=== PATIENT | female | born 1965 | race African-American/Black ===

== ENCOUNTER 2023-10-26 03:03 | Inpatient (IN) | payer OTHER ==
[~2023-10-26] VITALS: Ht 170.2 cm; Wt 83.0 kg
[2023-10-26] VITALS (61 sets, daily range): BP systolic 81–111; BP diastolic 57–90; PULSE 75–92; RESP 14–29; TEMP 97.4–98.6
[2023-10-26] MEDS ORDERED: ACETAMINOPHEN 650MG SUPP PR PRN (03:15)
[2023-10-26] MEDS ORDERED: PROPOFOL 10MG/ML 100ML 100 ML IV PRN (03:15)
[2023-10-26] MEDS ORDERED: ACETAMINOPHEN 650MG/20.3ML UDC NG PRN (03:15)
[2023-10-26 03:26] LABS: DIFFERENTIAL COMMENT 0; EOSINOPHILS % 0.7 % (0.0-5.0); HEMOGLOBIN. 11.1 g/dL (12.0-16.0); LYMPHOCYTES % 46.5 % (20.0-50.0); MEAN CORPUSCULAR HEMOGLOBIN 24.9 pg (28.0-32.0); MEAN CORPUSCULAR HGB CONC 30.9 g/dL (31.0-37.0); MEAN CORPUSCULAR VOLUME 80.6 fL (81.0-99.0); MEAN PLATELET VOLUME 8.8 fl (7.4-10.4); MONOCYTES % 5.6 % (2.0-8.0); NEUTROPHILS % 46.2 % (40.0-76.0); PLATELET 176 x1000/uL (130-400); RED BLOOD CELL COUNT 4.47 mill/uL (4.2-5.4); RED CELL DISTRIBUTION WIDTH 14.4 % (11.6-14.6); WHITE BLOOD COUNT 13.5 x1000/uL (4.5-11.0)
[2023-10-26 03:32] LABS: BG BASE EXCESS -15.5 mmol/L (-2.0-2.0); BG FRACTION INSPIRED OXYGEN 100; BG HCO3 ACT 16.6 mmol/L (22.0-26.0); BG PCO2 67.2 mmHg (35.0-45.0); BG PO2 478.9 mmHg (75.0-100.0); BG SAMPLE SITE RIGHT RADIAL; BG VENT MODE VENT - AC
[2023-10-26 03:35] LABS: CHLORIDE 106 mEq/L (98-107); POTASSIUM 4.5 mEq/L (3.5-5.1); SODIUM 143 mEq/L (136-145)
[2023-10-26 03:36] LABS: CARBON DIOXIDE 21 mEq/L (21-32)
[2023-10-26] MEDS: SODIUM CHLORIDE 0.9% 1,000 ML IV ONE (03:36)
[2023-10-26 03:37] LABS: CALCIUM 8.3 mg/dL (8.7-10.4)
[2023-10-26 03:39] LABS: PROTHROMBIN TIME 11.3 sec (9.6-11.0)
[2023-10-26 03:41] LABS: CREATININE 1.5 mg/dL (0.6-1.0); GLUCOSE 377 mg/dL (70-105)
[2023-10-26 03:42] LABS: TROPONIN I HIGH SENSITIVITY 19 ng/L (3.0-34); UREA NITROGEN BLOOD 18 mg/dL (9-23)
[2023-10-26 03:59] LABS: LACTIC ACID 12.7 mmol/L (0.4-2.0); PHOSPHORUS 9.5 mg/dL (2.5-4.9)
[2023-10-26 04:00] LABS: ETHANOL BLOOD < 10 mg/dL (<10)
[2023-10-26] MEDS ORDERED: FENTANYL 2500MCG/250ML PMX 250 ML IV STA (04:47)
[2023-10-26] MEDS ORDERED: MIDAZOLAM HCL 100 MG in DEXT 5% WATER 80 ML IV ONE (05:00)
[2023-10-26 06:27] LABS: BG BASE EXCESS -5.6 mmol/L (-2.0-2.0); BG FRACTION INSPIRED OXYGEN 100; BG HCO3 ACT 20.8 mmol/L (22.0-26.0); BG PCO2 43.8 mmHg (35.0-45.0); BG PH 7.295 (7.350-7.450); BG SAMPLE SITE RIGHT RADIAL; BG VENT MODE VENT - AC
[2023-10-26] MEDS: MIDAZOLAM 100MG/100ML PREMIX IV PRN (06:58)
[2023-10-26] MEDS: FENTANYL 2500MCG/250ML PMX 250 ML IV PRN (07:00)
[2023-10-26 08:40] LABS: TROPONIN I HIGH SENSITIVITY 331 ng/L (3.0-34)
[2023-10-26] MEDS ORDERED: CEFEPIME 2GM IN DEXT 5% 100ML IV SCH (09:00)
[2023-10-26] MEDS ORDERED: DOCUSATE SODIUM 100MG CAPSULE PO PRN (09:00)
[2023-10-26] MEDS ORDERED: DEXTROSE 50% WATER 50ML SYRINGE IV PRN (09:00)
[2023-10-26] MEDS ORDERED: HYDROCODONE/ACETAMINOPHEN 5/325MG TABLET PO PRN (09:00)
[2023-10-26] MEDS ORDERED: ONDANSETRON HCL 4MG/2ML INJ IV PRN (09:00)
[2023-10-26] MEDS ORDERED: EPINEPHRINE 0.1MG/ML (1:10,000) 10ML SYR ONE (09:00)
[2023-10-26] MEDS: INSULIN LISPRO 100 UNITS/ML SUBCUT SCH (09:30)
[2023-10-26 09:34] LABS: ALANINE AMINOTRANSFERASE 305 IU/L (10-49); ALBUMIN 3.7 g/dL (3.2-4.8); ASPARTATE AMINOTRANSFERASE 499 IU/L (<34); BILIRUBIN TOTAL 0.2 mg/dL (0.1-1.0); CREATINE KINASE 436 IU/L (34-145); PROTEIN TOTAL 5.5 g/dL (6.0-8.3)
[2023-10-26 09:36] LABS: T4 FREE 1.09 ng/dL (0.89-1.76); THYROID STIMULATING HORMONE 0.56 uIU/mL (0.55-4.78)
[2023-10-26 09:45] LABS: TROPONIN I HIGH SENSITIVITY 947 ng/L (3.0-34)
[2023-10-26 09:45] LABS: BILIRUBIN DIRECT < 0.1 mg/dL (<=3.0)
[2023-10-26] MEDS ORDERED: NALOXONE HCL 0.4MG/ML VIAL IV PRN (09:45)
[2023-10-26 10:08] LABS: LACTIC ACID 3.6 mmol/L (0.4-2.0)
[2023-10-26] MEDS: BLOOD SUGAR DIAGNOSTIC STRIP TEST SCH (10:12)
[2023-10-26] MEDS: PANTOPRAZOLE SODIUM 40 MG/VIAL IV SCH (10:26)
[2023-10-26 11:18] LABS: POTASSIUM 3.9 mEq/L (3.5-5.1)
[2023-10-26 11:19] LABS: CALCIUM 8.2 mg/dL (8.7-10.4)
[2023-10-26 11:24] LABS: CREATININE 1.8 mg/dL (0.6-1.0)
[2023-10-26] MEDS: ASPIRIN 81MG TABLET PO SCH (11:58)
[2023-10-26] MEDS: SODIUM CHLORIDE 0.9% 1,000 ML IV SCH (11:58)
[2023-10-26] MEDS: ENOXAPARIN 100MG/ML SYR SUBCUT SCH (11:59)
[2023-10-26 12:51] LABS: BASOPHILS % 0.2 % (0.0-2.0); DIFFERENTIAL COMMENT 0; EOSINOPHILS % 0.1 % (0.0-5.0); HEMATOCRIT. 38.7 % (36.0-48.0); HEMOGLOBIN. 12.2 g/dL (12.0-16.0); LYMPHOCYTES % 7.4 % (20.0-50.0); MEAN CORPUSCULAR HGB CONC 31.6 g/dL (31.0-37.0); MEAN CORPUSCULAR VOLUME 79.2 fL (81.0-99.0); MEAN PLATELET VOLUME 8.3 fl (7.4-10.4); MONOCYTES % 11.9 % (2.0-8.0); NEUTROPHILS % 80.4 % (40.0-76.0); PLATELET 212 x1000/uL (130-400); RED BLOOD CELL COUNT 4.89 mill/uL (4.2-5.4); RED CELL DISTRIBUTION WIDTH 14.5 % (11.6-14.6); WHITE BLOOD COUNT 13.4 x1000/uL (4.5-11.0)
[2023-10-26] MEDS: CEFEPIME 2GM/100ML 100 ML IV SCH (13:01)
[2023-10-26 13:09] LABS: CLARITY URINE TURBID (CLEAR); COLOR URINE YELLOW (YELLOW); GLUCOSE URINE 2+ (NEGATIVE); KETONES URINE NEGATIVE (NEGATIVE); LEUKOCYTE ESTERASE URINE NEGATIVE (NEGATIVE); NITRITE URINE NEGATIVE (NEGATIVE); OCCULT BLOOD URINE 3+ (NEGATIVE); PH URINE 5.5 (4.5-8.0); PROTEIN URINE 3+ (NEGATIVE); SPECIFIC GRAVITY URINE 1.014 (1.005-1.030); UROBILINOGEN URINE 0.2 E.U./dL (0.2-1.0)
[2023-10-26] MEDS ORDERED: TOPI50TA MT (13:12)
[2023-10-26] MEDS ORDERED: FURO20TA4 MT (13:12)
[2023-10-26] MEDS ORDERED: ROSU20TA2 MT (13:12)
[2023-10-26] MEDS ORDERED: LOSA25TA26 MT (13:12)
[2023-10-26] MEDS ORDERED: EMPA25TA MT (13:12)
[2023-10-26] MEDS ORDERED: BISO5TAB13 MT (13:12)
[2023-10-26] MEDS ORDERED: AMOX1TAB16 MT (13:12)
[2023-10-26 13:28] LABS: *AMPHETAMINES SCREEN URINE NEGATIVE (NEGATIVE); *BARBITURATES SCREEN URINE NEGATIVE (NEGATIVE); *BENZODIAZEPINES SCREEN URINE PRESUMPTIVE POSITIVE (NEGATIVE); *COCAINE SCREEN URINE NEGATIVE (NEGATIVE); CANNABINOID URINE SCREEN NEGATIVE (NEGATIVE); ECSTASY MDMA SCREEN URINE NEGATIVE (NEGATIVE); METHADONE URINE SCREEN NEGATIVE (NEGATIVE); OPIATES URINE SCREEN NEGATIVE (NEGATIVE); PHENCYCLIDINE URINE SCREEN NEGATIVE (NEGATIVE)
[2023-10-26 13:48] LABS: BACTERIA URINE 2+; RBC URINE 15-25 /hpf (0-2); SQUAMOUS EPITHELIAL CELL URINE 1+ /lpf (RARE/1+); WBC URINE 15-25 /hpf (0-2)
[2023-10-26] MEDS ORDERED: CEFEPIME 2GM/100ML 100 ML IV SCH (14:00)
[2023-10-26] MEDS: IOHEXOL-350 100 ML BOTTLE ONE (15:02)
[2023-10-26] MEDS: FUROSEMIDE 40MG TABLET PO SCH (15:14)
[2023-10-26] MEDS: METRONIDAZOLE 500 MG PREMIX 100 ML IV SCH (17:47)
[2023-10-26 19:06] LABS: CREATINE KINASE 637 IU/L (34-145)
[2023-10-26 20:04] LABS: TROPONIN I HIGH SENSITIVITY 426 ng/L (3.0-34)
[2023-10-26] MEDS ORDERED: ATORVASTATIN CALCIUM 40MG TABLET PO SCH (21:00)
[2023-10-26] MEDS: MIDAZOLAM 100MG/100ML PMX 100 ML IV PRN (21:01)
[2023-10-26 22:12] LABS: HEMATOCRIT 34.7 % (36.0-48.0)
[2023-10-26 22:40] LABS: HEMATOCRIT 35.8 % (36.0-48.0); HEMOGLOBIN 11.3 g/dL (12.0-16.0)
[2023-10-27] VITALS (103 sets, daily range): BP systolic 104–156; BP diastolic 60–118; PULSE 90–117; RESP 17–36; TEMP 98.2–100.4
[2023-10-27 02:31] LABS: CREATINE KINASE MB FRACTION 6.2 ng/mL (0.5-3.6)
[2023-10-27 05:46] LABS: BASOPHILS % 0.6 % (0.0-2.0); DIFFERENTIAL COMMENT 0; EOSINOPHILS % 0.1 % (0.0-5.0); HEMATOCRIT. 32.9 % (36.0-48.0); HEMOGLOBIN. 10.8 g/dL (12.0-16.0); LYMPHOCYTES % 8.7 % (20.0-50.0); MEAN CORPUSCULAR HEMOGLOBIN 24.9 pg (28.0-32.0); MEAN CORPUSCULAR HGB CONC 32.7 g/dL (31.0-37.0); MEAN CORPUSCULAR VOLUME 76.2 fL (81.0-99.0); MONOCYTES % 9.2 % (2.0-8.0); NEUTROPHILS % 81.4 % (40.0-76.0); PLATELET 183 x1000/uL (130-400); RED BLOOD CELL COUNT 4.32 mill/uL (4.2-5.4); RED CELL DISTRIBUTION WIDTH 14.1 % (11.6-14.6); WHITE BLOOD COUNT 11.1 x1000/uL (4.5-11.0)
[2023-10-27 05:57] LABS: CHLORIDE 114 mEq/L (98-107); SODIUM 144 mEq/L (136-145)
[2023-10-27 05:58] LABS: CALCIUM 8.1 mg/dL (8.7-10.4); CARBON DIOXIDE 23 mEq/L (21-32)
[2023-10-27 06:03] LABS: CREATININE 1.8 mg/dL (0.6-1.0); GLUCOSE 129 mg/dL (70-105); UREA NITROGEN BLOOD 27 mg/dL (9-23)
[2023-10-27 06:05] LABS: ALANINE AMINOTRANSFERASE 206 IU/L (10-49); ALBUMIN 3.8 g/dL (3.2-4.8); ASPARTATE AMINOTRANSFERASE 214 IU/L (<34); CREATINE KINASE 613 IU/L (34-145)
[2023-10-27 06:06] LABS: BILIRUBIN TOTAL 0.4 mg/dL (0.1-1.0); PROTEIN TOTAL 5.9 g/dL (6.0-8.3)
[2023-10-27 06:14] LABS: TROPONIN I HIGH SENSITIVITY 226 ng/L (3.0-34)
[2023-10-27 06:42] LABS: CREATINE KINASE MB FRACTION 4.1 ng/mL (0.5-3.6)
[2023-10-27] MEDS: TOPIRAMATE 25MG TABLET PO SCH (08:37)
[2023-10-27] MEDS: FENTANYL 2500MCG/250ML PMX 250 ML IV PRN (10:17)
[2023-10-27] MEDS: ACETAMINOPHEN 325MG TABLET PO PRN (13:38)
[2023-10-27] MEDS: IPRATROPIUM/ALBUTEROL 0.5-3(2.5)MG/3ML NEB HHN SCH (14:08)
[2023-10-27 18:11] LABS: BG BASE EXCESS -3.4 mmol/L (-2.0-2.0); BG CARBOXYHEMOGLOBIN 0.2 % (0.5-1.5); BG DEOXYHEMOGLOBIN 1.5 % (0.0-5.0); BG FRACTION INSPIRED OXYGEN 40; BG HCO3 ACT 20.3 mmol/L (22.0-26.0); BG METHEMOGLOBIN 0.3 % (0.0-1.5); BG OXYGEN SATURATION 98.5 % (92.0-98.5); BG PCO2 32.4 mmHg (35.0-45.0); BG PH 7.415 (7.350-7.450); BG PO2 114.1 mmHg (75.0-100.0); BG SAMPLE SITE RIGHT RADIAL; BG TOTAL HEMOGLOBIN 12.7 g/dL (12.0-18.0); BG VENT MODE VENT - AC
[2023-10-27] MEDS ORDERED: METOCLOPRAMIDE 10MG/10 ML UDC PO PRN (20:00)
[2023-10-27] MEDS: ENOXAPARIN 80MG/0.8ML SYR SUBCUT SCH (21:30)
[2023-10-27] MEDS: METOCLOPRAMIDE HCL 10MG/2ML VIAL IV PRN (21:30)
[2023-10-27] MEDS: PANTOPRAZOLE SODIUM 40 MG/VIAL IV SCH (21:31)
[2023-10-28] VITALS (65 sets, daily range): BP systolic 105–160; BP diastolic 58–110; PULSE 84–116; RESP 20–31; TEMP 99–103.1; O2SAT 100
[2023-10-28 02:11] LABS: CHLORIDE 113 mEq/L (98-107); POTASSIUM 5.5 mEq/L (3.5-5.1); SODIUM 143 mEq/L (136-145)
[2023-10-28 02:12] LABS: CALCIUM 8.2 mg/dL (8.7-10.4); CARBON DIOXIDE 23 mEq/L (21-32)
[2023-10-28 02:17] LABS: CREATININE 1.8 mg/dL (0.6-1.0); GLUCOSE 130 mg/dL (70-105); UREA NITROGEN BLOOD 20 mg/dL (9-23)
[2023-10-28 04:58] LABS: BASOPHILS % 0.2 % (0.0-2.0); DIFFERENTIAL COMMENT 0; EOSINOPHILS % 0.3 % (0.0-5.0); HEMATOCRIT. 35.5 % (36.0-48.0); HEMOGLOBIN. 11.5 g/dL (12.0-16.0); LYMPHOCYTES % 9.9 % (20.0-50.0); MEAN CORPUSCULAR HEMOGLOBIN 25.2 pg (28.0-32.0); MEAN CORPUSCULAR HGB CONC 32.3 g/dL (31.0-37.0); MEAN CORPUSCULAR VOLUME 78.1 fL (81.0-99.0); MEAN PLATELET VOLUME 8.6 fl (7.4-10.4); MONOCYTES % 9.7 % (2.0-8.0); NEUTROPHILS % 79.9 % (40.0-76.0); PLATELET 172 x1000/uL (130-400); RED BLOOD CELL COUNT 4.55 mill/uL (4.2-5.4); RED CELL DISTRIBUTION WIDTH 14.4 % (11.6-14.6); WHITE BLOOD COUNT 10.1 x1000/uL (4.5-11.0)
[2023-10-28 05:02] LABS: CALCIUM 8.7 mg/dL (8.7-10.4)
[2023-10-28 05:06] LABS: CREATININE 1.8 mg/dL (0.6-1.0)
[2023-10-28] MEDS: ACETAMINOPHEN 325MG TABLET PO PRN (07:23)
[2023-10-28 08:25] LABS: BG BASE EXCESS -0.6 mmol/L (-2.0-2.0); BG CARBOXYHEMOGLOBIN 0.3 % (0.5-1.5); BG DEOXYHEMOGLOBIN 1.9 % (0.0-5.0); BG FRACTION INSPIRED OXYGEN 40; BG HCO3 ACT 23.8 mmol/L (22.0-26.0); BG OXYGEN SATURATION 98.1 % (92.0-98.5); BG OXYHEMOGLOBIN 97.8 % (94.0-97.0); BG PCO2 38.3 mmHg (35.0-45.0); BG PH 7.412 (7.350-7.450); BG PO2 109.1 mmHg (75.0-100.0); BG SAMPLE SITE RIGHT RADIAL; BG TOTAL HEMOGLOBIN 11.3 g/dL (12.0-18.0); BG VENT MODE VENT - AC
[2023-10-28] MEDS: AMIODARONE HCL 200 MG TABLET PO SCH (10:41)
[2023-10-28] MEDS ORDERED: LIDOCAINE HCL 1% 10 MG/ML 10ML VIAL ONE (11:10)
[2023-10-28] MEDS: IPRATROPIUM/ALBUTEROL 0.5-3(2.5)MG/3ML NEB HHN PRN (16:02)
[2023-10-28] MEDS: CARVEDILOL 3.125 MG TABLET NG SCH (16:33)
== END 2023-10-28 20:02 | disposition short-term general hospital (02) | DRG 871 ==
LOC: ER 03:14 → CVICU 04:40
PROVIDERS: ADMIT Internal Medicine; ATTEND Internal Medicine
PROC: 5A1945Z Respiratory Ventilation, 24-96 Consecutive Hours (ICD-10-PCS; principal; 2023-10-26)
PROC: 0BH17EZ Insertion of Endotracheal Airway into Trachea, Via Natural or Artificial Opening (ICD-10-PCS; 2023-10-26)
PROC: 5A12012 Performance of Cardiac Output, Single, Manual (ICD-10-PCS; 2023-10-26)
PROC: 02HV33Z Insertion of Infusion Device into Superior Vena Cava, Percutaneous Approach (ICD-10-PCS; 2023-10-28)
PROC: B548ZZA Ultrasonography of Superior Vena Cava, Guidance (ICD-10-PCS; 2023-10-28)
DX: A41.9 Sepsis, unspecified organism (principal); I21.4 Non-ST elevation (NSTEMI) myocardial infarction; I46.9 Cardiac arrest, cause unspecified; J96.00 Acute respiratory failure, unspecified whether with hypoxia or hypercapnia; N17.0 Acute kidney failure with tubular necrosis; G93.1 Anoxic brain damage, not elsewhere classified; E87.4 Mixed disorder of acid-base balance; I47.20 Ventricular tachycardia, unspecified; J93.9 Pneumothorax, unspecified; E83.39 Other disorders of phosphorus metabolism; I50.9 Heart failure, unspecified; I11.0 Hypertensive heart disease with heart failure; J44.89 Other specified chronic obstructive pulmonary disease; D64.9 Anemia, unspecified; R73.9 Hyperglycemia, unspecified; F17.210 Nicotine dependence, cigarettes, uncomplicated; Z78.1 Physical restraint status
CPT/HCPCS: 36415; 36573; 36600; 71045; 71275; 76770; 80048; 80053; 80076; 80305; 80320; 81003; 82375; 82550; 82553; 82805; 82962; 83036; 83605; 83735; 83880; 84100; 84145; 84439; 84443; 84481; 84484; 85014; 85018; 85025; 85379; 86850; 86900; 87070; 93005; 93306; 93970; 94003; 99291; A6261; C1725; J0692; J1650; J2250; J2470; J2704; J2765; J3010; J3490; J7030; J7060; Q9967; G0480